=== PATIENT | female | born 1995 | race Caucasian/White ===

== ENCOUNTER 2018-02-20 15:46 | Inpatient (IN) | payer OTHER ==
[~2018-02-20] VITALS: Ht 152.4 cm; Wt 44.2 kg
--- OUTSIDE RECORDS SUMMARY | 2018-02-20 15:49 | XMS REPORT | Clinical Summary ---
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 Active pantoprazole (PROTONIX) Take 40 mg by 0 40 MG tablet mouth 2 (two) 5 times daily . Active pediatric multivitamin Take by mouth 0 chewable tablet daily . Active LACTOBACILLUS ACIDOPHILUS Take by 0 (PROBIOTIC ORAL) mouth. Active omega-3 fatty acids Cap Take by mouth 0 daily. Active cholecalciferol, vitamin Take 2,000 0 D3, 2,000 unit Tab Units by mouth daily. 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 Swallow study 04/2010 negative for aspiration and swallowing abnormalities, but no esophageal peristalsis is evident and esophageal emptying occurs only with upright positioning. Hypothyroidism following radioiodine therapy 05/07/2010 Overview: Overview: On levothyroxine. Sees [facility]. Family History Medical History Relation Name Comments Breast cancer Maternal Aunt Hypertension Maternal Grandmother Breast cancer Paternal Aunt Hypertension Paternal Grandfather Relation Name Status Comments Maternal Aunt Maternal Grandmother Paternal Aunt Paternal Grandfather Social History Date Tobacco Use Types Packs/Day Years Used Never Smoker Smokeless Tobacco: Never Used Alcohol Use Drinks/Week oz/Week Comments No Sex Assigned at Date Recorded Not on file Industry Job Start Date Occupation Not on file Not on file Not on file Travel End Travel History Travel Start No recent travel history available. Last Filed Vital Signs Not on file Plan of Treatment Health Maintenance Due Date Last Done Comments INFLUENZA VACCINE 12/24/2017 Results Not on fileafter 02/19/2017 Insurance Payer Benefit Subscriber ID Type Phone Address Plan / Group MEDICAID - MEDICAID [facility]GD [facility] xxxxxxxxx Medicaid CARE [employer]AR Contracted PLAN Advance Directives Patient has advance care planning documents on file. For more information, luis lopez contact: [facility] [address] [place] [address]
--- NOTE | 2018-02-20 16:51 | Diagnostic Imaging Report ---
PROCEDURE:CXR 2 VIEW - HOPD COMPARISON:None. INDICATIONS:Cough FINDINGS:There are chronic appearing changes in the perihilar regions extending to the periphery. Findings could represent cystic fibrosis. Exact acuteness of these opacities is uncertain without old films available to compare with. Is there a history of chronic pulmonary disease? There are no effusions identified. Single metallic coil noted at the AP window. Osseous structures appear unremarkable. CONCLUSION:Diffuse bilateral perihilar opacities extending to the periphery. Bhavin Tabares D.O. Dictated by: Bhavin Tabares D.O. on 02/20/2018 at 17:01 Electronically approved by: Bhavin Tabares D.O. on 02/20/2018 at 17:01
--- OUTSIDE RECORDS SUMMARY | 2018-02-20 17:44 | XMS REPORT | Clinical Summary ---
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 Sees [facility]. Family History Medical History Relation [...] Plan / Group MEDICAID - MEDICAID MGD [facility] xxxxxxxxx Medicaid CARE COMM [employer]AR Contracted PLAN Advance Directives Patient has advance care planning documents on file. For more information, luis lopez contact: [facility] [address] [place] [address]
--- OUTSIDE RECORDS SUMMARY | 2018-02-20 17:44 | XMS REPORT ---
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 Allergies, Adverse Reactions, Alerts This patient has no known allergies or adverse reactions. Medications This patient has no known medications. Results Test Description Test Time Test Comments Text Results Atomic Results Result Comments CXR 2 VIEW - HOPD 2018-02-20 17:01:00 [place] [address] Patient Name: THOMAS MEEKS MR #: [id number] : 1995 Age/Sex: 23/F Req #: [id number] Adm Physician: Ordered by: JARRED CORCORAN MD Report #: [id number] Location: [facility] Room/Bed: Procedure: [id number] HOPD/CXR 2 VIEW - HOPD Exam Date: 02/20/18 Exam Time: 1643 REPORT STATUS: Signed PROCEDURE: CXR 2 VIEW - HOPD COMPARISON: None. INDICATIONS: Cough FINDINGS: There are chronic appearing changes in the perihilar regions extending to the periphery. Findings could represent cystic fibrosis. Exact acuteness of these opacities is uncertain without old films available to compare with. Is there a history of chronic pulmonary disease? There are no effusions identified. Single metallic coil noted at the AP window. Osseous structures appear unremarkable. CONCLUSION: Diffuse bilateral perihilar opacities extending to the periphery. Sudheer Tabares D.O. Dictated by: Sudheer Tabares D.O. on 02/20/2018 at 17:01 Electronically approved by: Sudheer Tabares D.O. on 02/20/2018 at 17:01 Dictated By: SUDHEER TABARES DO 00 Transcribed By: MILTON on 02/20/181700 COPY TO: JARRED CORCORAN MD
[2018-02-20] MEDS ORDERED: ALBUTEROL/IPRATROPIUM 3 ML NEB NEB ONE (18:15)
[2018-02-20] MEDS ORDERED: SODIUM CHLORIDE 0.9% 1000ML 1,000 ML IV SCH (18:30)
[2018-02-20] MEDS ORDERED: CEFTRIAXONE SOD 1 GM VIAL IV SCH (18:30)
[2018-02-20] MEDS ORDERED: ALBUTEROL/IPRATROPIUM 3 ML NEB NEB PRN (18:30)
[2018-02-20] MEDS ORDERED: AZITHROMYCIN 250MG/NS 100 ML 100 ML IV SCH (18:30)
[2018-02-20] MEDS ORDERED: CEFTRIAXONE SOD 1 GM VIAL IM ONE (18:30)
[2018-02-20 20:47] VITALS: BP 107/64
[2018-02-21] MEDS ORDERED: CEFTRIAXONE SOD 1 GM VIAL IV SCH (18:00)
== END 2018-02-21 00:09 | disposition short-term general hospital (02) | DRG 195 ==
LOC: FSED 15:46 → ERHOLD 17:32 → MED/SURG3 18:25
PROVIDERS: ADMIT Internal Medicine; ATTEND Internal Medicine
DX: J15.9 Unspecified bacterial pneumonia (principal); R09.02 Hypoxemia
CPT/HCPCS: 71046; 80053; 85025; 87040; 99284